=== PATIENT | female | born 1965 | race Two or more races ===

== ENCOUNTER 2020-01-30 17:39 | Emergency (ER) | payer MEDICAID ==
[~2020-01-30] VITALS: Ht 157.5 cm; Wt 55.3 kg
[2020-01-30] MEDS ORDERED: cloNIDine HCL 0.1 MG TAB PO ONE (18:00)
[2020-01-30] MEDS ORDERED: SODIUM CHLORIDE 0.9% 500 ML IV ONE ×4 (18:00→22:45)
[2020-01-30 19:54] LABS: Basophils # (auto) 0 10 ^3/uL (0-0.2); Basophils % (auto) 0.5 % (0.0-2.0); Eosinophils # (auto) 0 10 ^3/uL (0-0.8); Eosinophils % (auto) 0.9 % (0.0-7.0); Hematocrit 42.7 % (36.0-46.0); Hemoglobin 14.8 g/dL (12.2-16.2); Lymphocytes # (auto) 1.6 10 ^3/uL (0.4-5.4); Lymphocytes % (auto) 34.5 % (10.0-50.0); Mean Corpuscular Hemoglobin 33.5 pg (28.0-32.0); Mean Corpuscular Hgb Conc. 34.8 g/dL (32.0-36.0); Mean Corpuscular Volume 96.3 fL (80.0-100.0); Monocytes # (auto) 0.3 10 ^3/uL (0-1.3); Neutrophils # (auto) 2.7 10 ^3/uL (1.6-8.6); Neutrophils % (auto) 57.1 % (37.0-80.0); Nucleated Red Blood Cells % 0.3 %; Platelet Count (auto) 212 10^3/uL (140-450); Red Blood Cells 4.43 10^6/uL (4.0-5.20); Red Cell Distribution Width 15.7 % (11.8-14.3); White Blood Cell 4.7 10^3/uL (4.4-10.8)
[2020-01-30 20:09] LABS: Albumin 4.3 g/dL (3.4-5.0); Calcium 9.2 mg/dL (8.5-10.1); Potassium 4.4 mmol/L (3.5-5.1)
[2020-01-30 20:12] LABS: BUN/Creatinine Ratio 14.2; Bilirubin, Total 0.5 mg/dL (0.2-1.0); Total Protein 7.9 g/dL (6.4-8.2)
[2020-01-30] MEDS ORDERED: InsuLIN REG 1unit/0.01ml Soln (100units/ml) IV ONE (20:30)
[2020-01-30 23:35] VITALS: BP 142/80
== END 2020-01-31 00:35 | disposition home or self-care (01) ==
LOC: ER 17:39
DX: E11.65 Type 2 diabetes mellitus with hyperglycemia (principal); E11.22 Type 2 diabetes mellitus with diabetic chronic kidney disease; I12.9 Hypertensive chronic kidney disease with stage 1 through stage 4 chronic kidney disease, or unspecified chronic kidney disease; N18.3 Chronic kidney disease, stage 3 (moderate)
CPT/HCPCS: 36415; 70450; 80053; 82962; 84484; 85025; 96361; 96374; 99285; J1815; J7030

== ENCOUNTER 2020-02-21 18:57 | Inpatient (IN) | payer MEDICAID ==
[~2020-02-21] VITALS: Ht 157.5 cm; Wt 57.0 kg
[2020-02-21] MEDS ORDERED: ONDANSETRON HCL 4 MG/2 ML VIAL IV ONE (19:45)
[2020-02-21 20:58] LABS: Basophils # (auto) 0 10 ^3/uL (0-0.2); Basophils % (auto) 0.2 % (0.0-2.0); Eosinophils # (auto) 0 10 ^3/uL (0-0.8); Eosinophils % (auto) 0.1 % (0.0-7.0); Hematocrit 41.5 % (36.0-46.0); Hemoglobin 14.3 g/dL (12.2-16.2); Lymphocytes % (auto) 16.2 % (10.0-50.0); Mean Corpuscular Hgb Conc. 34.4 g/dL (32.0-36.0); Mean Corpuscular Volume 96.1 fL (80.0-100.0); Monocytes # (auto) 0.2 10 ^3/uL (0-1.3); Monocytes % (auto) 4.2 % (0.0-12.0); Neutrophils # (auto) 4.7 10 ^3/uL (1.6-8.6); Neutrophils % (auto) 79.3 % (37.0-80.0); Nucleated Red Blood Cells % 0.1 %; Platelet Count (auto) 189 10^3/uL (140-450); Red Blood Cells 4.32 10^6/uL (4.0-5.20); Red Cell Distribution Width 14.9 % (11.8-14.3); White Blood Cell 5.9 10^3/uL (4.4-10.8)
[2020-02-21 21:16] LABS: Calcium 9.2 mg/dL (8.5-10.1); Potassium 4.4 mmol/L (3.5-5.1)
[2020-02-21 21:20] LABS: Bilirubin, Total 0.8 mg/dL (0.2-1.0); Total Protein 7.6 g/dL (6.4-8.2)
[2020-02-21] MEDS ORDERED: ACETAMINOPHEN 325 MG TAB PO ONE (22:15)
[2020-02-21 22:22] LABS: Urine Bacteria FEW /hpf (None Seen); Urine Blood Negative /uL (Negative); Urine Mucus FEW (None Seen); Urine Specific Gravity 1.026 (1.001-1.035); Urine WBC 8 /hpf (0 - 5)
[2020-02-22] VITALS (7 sets, daily range): BP systolic 131–154; BP diastolic 77–82
[2020-02-22] MEDS ORDERED: MORPHINE SULFATE 4 MG/ML SYR/VIAL IV PRN
[2020-02-22] MEDS ORDERED: ONDANSETRON HCL 4 MG/2 ML VIAL IV PRN
[2020-02-22] MEDS ORDERED: DOCUSATE SOD 100 MG CAP PO PRN
[2020-02-22] MEDS ORDERED: MORPHINE SULF INJ 2 MG/ML SYRINGE 1ML IV PRN
[2020-02-22] MEDS ORDERED: ACETAMINOPHEN 325 MG TAB PO PRN
[2020-02-22] MEDS ORDERED: SODIUM CHLORIDE 0.9% 1,000 ML IV SCH
--- NOTE | 2020-02-22 00:55 | NUR ---
Telemetry admit from [facility] admitted to Telemetry unit. Patient oriented to VAHE ZIMMERMAN RN primary RN, unit, room, bed, and unit policies regarding patient care and visiting hours. Patient now on continuous telemetry monitoring, tele box # [id number] and telemetry reading on arrival to unit is sinus rhythm. Patient is alert and oriented x4. Patient denies pain or shortness of breath at this time. No sign/symptoms of distress noted or verbalized at this time. No sign/symptoms of distress noted or verbalized at this time. Instructed on plan of care and encouraged patient to call for assistance as needed, patient verbalized understanding. Bed is locked in lowest position, side rails x 2 are up, call light is within reach, and bed alarm is on.
[2020-02-22] MEDS ORDERED: DEXTROSE (50%) 50ML SYRG IV PRN ×2 (01:00→01:15)
[2020-02-22] MEDS: ACETAMINOPHEN 325 MG TAB PO PRN (01:58)
[2020-02-22] MEDS ORDERED: LEVO50TA7 PO (02:23)
[2020-02-22] MEDS ORDERED: INSU1INJ19 SC (04:11)
[2020-02-22] MEDS: hydrALAZINE HCL 25 MG TAB PO SCH ×3 (05:45→21:56)
[2020-02-22] MEDS: LEVOTHYROXINE SODIUM 25 MCG TAB PO SCH (05:45)
[2020-02-22] MEDS: InsuLIN REG 1unit/0.01ml Soln (100units/ml) SC SCH ×3 (05:58→17:00)
[2020-02-22] MEDS: ACCU-CHEK COMFORT CURVE STRIP VI SCH ×4 (05:58→21:46)
[2020-02-22] MEDS ORDERED: hydrALAZINE HCL 25 MG TAB PO SCH (06:00)
--- NOTE | 2020-02-22 06:00 | NUR ---
MRSA Swab MRSA swab collected and sent to lab via bullet.
[2020-02-22] MEDS: ONDANSETRON HCL 4 MG/2 ML VIAL IV PRN (06:06)
[2020-02-22] MEDS ORDERED: InsuLIN REG 1unit/0.01ml Soln (100units/ml) SC SCH ×3 (07:00→22:00)
[2020-02-22] MEDS ORDERED: LEVOTHYROXINE SODIUM 25 MCG TAB PO SCH (07:00)
[2020-02-22] MEDS ORDERED: ACCU-CHEK COMFORT CURVE STRIP VI SCH (07:00)
[2020-02-22 07:26] LABS: Basophils # (auto) 0 10 ^3/uL (0-0.2); Basophils % (auto) 0.8 % (0.0-2.0); Eosinophils # (auto) 0 10 ^3/uL (0-0.8); Eosinophils % (auto) 0.6 % (0.0-7.0); Hemoglobin 13.4 g/dL (12.2-16.2); Lymphocytes # (auto) 1.8 10 ^3/uL (0.4-5.4); Mean Corpuscular Hemoglobin 33.4 pg (28.0-32.0); Mean Corpuscular Hgb Conc. 34.4 g/dL (32.0-36.0); Monocytes # (auto) 0.4 10 ^3/uL (0-1.3); Neutrophils % (auto) 57.6 % (37.0-80.0); Platelet Count (auto) 205 10^3/uL (140-450); Red Blood Cells 4.02 10^6/uL (4.0-5.20); Red Cell Distribution Width 14.4 % (11.8-14.3); White Blood Cell 5.2 10^3/uL (4.4-10.8)
[2020-02-22 07:43] LABS: Albumin 3.7 g/dL (3.4-5.0); Calcium 9.6 mg/dL (8.5-10.1); Potassium 3.9 mmol/L (3.5-5.1)
[2020-02-22 07:50] LABS: BUN/Creatinine Ratio 31.6; Bilirubin, Total 0.7 mg/dL (0.2-1.0); Total Protein 6.9 g/dL (6.4-8.2)
--- NOTE | 2020-02-22 09:40 | NUR ---
DR. PATEL AT BEDSIDE, DISCUSSED PLAN OF CARE WITH PATIENT. WILL CONTINUE TO MONITOR Q1HR AND PRN
[2020-02-22] MEDS: ASPirin 81 mg TAB PO SCH (09:45)
[2020-02-22] MEDS: NIFEdipine ER 30 MG TAB PO SCH (09:45)
[2020-02-22] MEDS ORDERED: PANTOPRAZOLE 40 MG/10 ML VIAL INJ IV SCH ×2 (10:00→11:00)
[2020-02-22] MEDS ORDERED: NIFEdipine ER 30 MG TAB PO SCH (10:00)
[2020-02-22] MEDS ORDERED: ASPirin 81 mg TAB PO SCH (10:00)
--- NOTE | 2020-02-22 10:00 | NUR ---
DR. OSULLIVAN ATTENDED TO PATIENT. NEW ORDER TO DO EGD AT NOON. ALSO ORDERED BETTY COVID-19 TEST FOR PROCEDURE WILL OBTAIN CONSENT AND CARRY OUT ORDERS.
[2020-02-22] MEDS ORDERED: LIDOCAINE VISCOUS 2% 15ML UD ONE (10:30)
[2020-02-22] MEDS ORDERED: SODIUM CHLORIDE LOCK 10 ML ONE (10:30)
[2020-02-22] MEDS ORDERED: diphenhdrAMINE HCL 50 MG/1 ML VL ONE (10:30)
[2020-02-22] MEDS: D5W/SOD CHLO 0.9% 1,000 ML IV SCH (11:15)
--- NOTE | 2020-02-22 12:10 | NUR ---
Rosaura swab collected and taken to lab
[2020-02-22 12:40] LABS: INR 1.04 (0.9-1.15)
--- NOTE | 2020-02-22 14:00 | NUR ---
patient currently off unit for EGD procedure
[2020-02-22] MEDS: fentaNYL CITRATE 100 MCG/2 ML VL ONE ×2 (15:04→15:07)
[2020-02-22] MEDS: MIDAZOLAM HCL 5 MG/ML-1ML VIAL ONE ×2 (15:04→15:07)
--- NOTE | 2020-02-22 15:56 | NUR ---
Patient is back to unit. Will resume scheduled medications
--- NOTE | 2020-02-22 16:56 | NUR ---
Late administration of hydralazine. Patient off unit at scheduled time. Current BP is 133/77
[2020-02-22] MEDS: SUCRALFATE 1 GM/10 ML ORAL SUSP PO SCH ×2 (16:59→21:56)
--- NOTE | 2020-02-22 18:44 | NUR ---
DR. Anisha Kennedy at bedside, discussed plan of care with patient Placed new order for RUQ ultrasound
--- NOTE | 2020-02-22 19:40 | NUR ---
In-house Covid test collected per MD's order. Will be taken to lab.
--- NOTE | 2020-02-22 20:30 | NUR ---
open note assumed care of pt. upon entering room pt awake and alert. pt on room air no distress noted or expressed. pt denies any pain. pt oriented to this nurse, updated on plan of care. pt made aware of npo status after midnight for RUQ ultrasound in the AM. pt verbalized understanding of orders. pt bed locked, low and 2x rails up. call light in reach and this nurse to round q1hr and prn. pt encouraged to call as needed.
[2020-02-22] MEDS: PANTOPRAZOLE 40 MG TAB PO SCH (21:57)
[2020-02-22] MEDS ORDERED: ATORVASTATIN 20 MG TAB PO SCH ×2 (22:00)
[2020-02-23 05:00] VITALS: BP 129/72
[2020-02-23] MEDS: D5W/SOD CHLO 0.9% 1,000 ML IV SCH (05:11)
[2020-02-23] MEDS: hydrALAZINE HCL 25 MG TAB PO SCH (06:36)
[2020-02-23] MEDS: ACCU-CHEK COMFORT CURVE STRIP VI SCH ×2 (06:36→11:30)
[2020-02-23] MEDS: LEVOTHYROXINE SODIUM 25 MCG TAB PO SCH (06:36)
[2020-02-23] MEDS: SUCRALFATE 1 GM/10 ML ORAL SUSP PO SCH ×2 (06:36→11:30)
[2020-02-23] MEDS: InsuLIN REG 1unit/0.01ml Soln (100units/ml) SC SCH ×2 (06:37→11:30)
[2020-02-23] MEDS: ONDANSETRON HCL 4 MG/2 ML VIAL IV PRN (06:46)
--- NOTE | 2020-02-23 08:00 | NUR ---
Opening Shift Note Assumed care of patient, awake, alert, and oriented. No S/S of distress/SOB or pain. Bed in lowest/locked position, bed rails up x2, call light within reach. Instructed on POC and to call for assist PRN. Will continue to monitor for changes Q1hr and PRN.
[2020-02-23] MEDS ORDERED: PANT40TA2 PO (08:22)
[2020-02-23] MEDS ORDERED: SUCR1SUS10 PO (08:22)
[2020-02-23] MEDS: NIFEdipine ER 30 MG TAB PO SCH (08:52)
[2020-02-23] MEDS: ACETAMINOPHEN 325 MG TAB PO PRN (08:52)
[2020-02-23] MEDS: ASPirin 81 mg TAB PO SCH (08:52)
[2020-02-23] MEDS: PANTOPRAZOLE 40 MG TAB PO SCH (08:52)
[2020-02-23 09:00] VITALS: BP 137/77
[2020-02-23 10:37] VITALS: BP 137/77
--- NOTE | 2020-02-23 11:22 | NUR ---
Discharge instructions given as ordered. Encourage to follow up with PMD as instructed. All questions and concerns addressed. Patient verbalized understanding. IV removed with catheter intact, pressure dressing applied. Telemetry unit returned to ICU. Patient taken to vehicle via wheelchair with all personal belongings, accompanied by staff. No distress noted at time of departure.
== END 2020-02-23 11:20 | disposition home or self-care (01) | DRG 241 ==
LOC: ER 18:57 → TELE-WESTW 18:58 → ER 02-22 00:51 → TELE 02-22 09:54 → TELE-WESTW 02-22 09:55
PROVIDERS: ADMIT Nurse Practitioner Family; ATTEND Hospitalist
PROC: 0DB68ZX Excision of Stomach, Via Natural or Artificial Opening Endoscopic, Diagnostic (ICD-10-PCS; principal; 2020-02-22 15:02)
DX: K29.00 Acute gastritis without bleeding (principal); K80.20 Calculus of gallbladder without cholecystitis without obstruction; E78.5 Hyperlipidemia, unspecified; E03.9 Hypothyroidism, unspecified; I12.9 Hypertensive chronic kidney disease with stage 1 through stage 4 chronic kidney disease, or unspecified chronic kidney disease; E11.22 Type 2 diabetes mellitus with diabetic chronic kidney disease; N18.30 Chronic kidney disease, stage 3 unspecified; E11.65 Type 2 diabetes mellitus with hyperglycemia; I72.8 Aneurysm of other specified arteries; E86.0 Dehydration; F32.9 Major depressive disorder, single episode, unspecified; K21.9 Gastro-esophageal reflux disease without esophagitis; K38.8 Other specified diseases of appendix; Z20.828 Contact with and (suspected) exposure to other viral communicable diseases; Z82.49 Family history of ischemic heart disease and other diseases of the circulatory system; Z79.4 Long term (current) use of insulin; Z86.73 Personal history of transient ischemic attack (TIA), and cerebral infarction without residual deficits; Z90.710 Acquired absence of both cervix and uterus; Z98.51 Tubal ligation status; Z90.49 Acquired absence of other specified parts of digestive tract; Z79.899 Other long term (current) drug therapy; Z79.01 Long term (current) use of anticoagulants
CPT/HCPCS: 36415; 43239; 70450; 74176; 76705; 80053; 80061; 81001; 82962; 83036; 83690; 84443; 85025; 85610; 87081; 87426; 93005; 96374; C9113; G0378; J1815; J2250; J2405; J7042

== ENCOUNTER 2020-03-03 03:42 | Emergency (ER) | payer MEDICAID ==
[~2020-03-03] VITALS: Ht 157.5 cm; Wt 53.5 kg
[~2020-03-03 03:42] MED LIST: INSU1INJ19 SC; LEVO50TA7 PO; PANT40TA2 PO; SUCR1SUS10 PO
[2020-03-03] MEDS ORDERED: SODIUM CHLORIDE 0.9% 1,000 ML IVB ONE (07:00)
[2020-03-03] MEDS ORDERED: DOCUSATE SOD 100 MG CAP PO ONE (07:00)
[2020-03-03 07:02] LABS: Urine Bacteria NONE SEEN /hpf (None Seen); Urine Blood Negative /uL (Negative); Urine Mucus FEW (None Seen); Urine Specific Gravity 1.007 (1.001-1.035); Urine WBC 1 /hpf (0 - 5)
[2020-03-03 07:34] VITALS: BP 145/78
[2020-03-03] MEDS ORDERED: cloNIDine HCL 0.1 MG TAB PO ONE (07:45)
[2020-03-03 07:52] LABS: Basophils # (auto) 0 10 ^3/uL (0-0.2); Basophils % (auto) 0.2 % (0.0-2.0); Eosinophils # (auto) 0 10 ^3/uL (0-0.8); Eosinophils % (auto) 0.1 % (0.0-7.0); Hemoglobin 12.9 g/dL (12.2-16.2); Lymphocytes # (auto) 0.9 10 ^3/uL (0.4-5.4); Lymphocytes % (auto) 11.5 % (10.0-50.0); Mean Corpuscular Hemoglobin 32.5 pg (28.0-32.0); Mean Corpuscular Volume 95.4 fL (80.0-100.0); Monocytes # (auto) 0.4 10 ^3/uL (0-1.3); Monocytes % (auto) 4.9 % (0.0-12.0); Neutrophils # (auto) 6.2 10 ^3/uL (1.6-8.6); Neutrophils % (auto) 83.3 % (37.0-80.0); Platelet Count (auto) 219 10^3/uL (140-450); Red Blood Cells 3.99 10^6/uL (4.0-5.20); Red Cell Distribution Width 14.2 % (11.8-14.3); White Blood Cell 7.5 10^3/uL (4.4-10.8)
[2020-03-03 08:33] LABS: Albumin 3.8 g/dL (3.4-5.0); BUN/Creatinine Ratio 11.2; Calcium 8.7 mg/dL (8.5-10.1); Potassium 3.9 mmol/L (3.5-5.1)
[2020-03-03 08:37] LABS: Bilirubin, Total 0.4 mg/dL (0.2-1.0); Total Protein 7.2 g/dL (6.4-8.2)
== END 2020-03-03 08:57 | disposition home or self-care (01) ==
LOC: ER 03:44
DX: E86.0 Dehydration (principal); K59.00 Constipation, unspecified; I10 Essential (primary) hypertension; E11.65 Type 2 diabetes mellitus with hyperglycemia; E78.5 Hyperlipidemia, unspecified; Z90.49 Acquired absence of other specified parts of digestive tract; Z90.710 Acquired absence of both cervix and uterus; Z98.51 Tubal ligation status; Z86.73 Personal history of transient ischemic attack (TIA), and cerebral infarction without residual deficits
CPT/HCPCS: 36415; 74022; 80053; 81001; 85025; 96360; 99284; J7030